=== PATIENT | female | born 1990 | race Hispanic/Latino ===

== ENCOUNTER 2020-10-11 18:07 | Emergency (ER) | payer OTHER, SELFPAY ==
--- NOTE | ~2020-10-11 | XR_ITS ---
EXAMINATION: XR foot LT min 3V DATE: 10/11/2020 18:19 INDICATION: Left foot pain, initial encounter TECHNIQUE: Dorsoplantar, lateral, and 2 oblique views of the left foot were obtained. COMPARISON: None FINDINGS: There is an acute, traumatic, closed, oblique distal shaft fracture of the third metatarsal . Dorsal soft tissue swelling overlies the fracture. The joint spaces are normal. No additional acute osseous findings are evident. IMPRESSION: 1. Acute distal shaft fracture of the third metatarsal. Reviewed, dictated and finalized at location A. [facility]IE[facility]
[2020-10-11 18:22] VITALS: BP 113/75; PULSE 73; RESP 16; TEMP 36.7; O2SAT 99
--- NOTE | 2020-10-11 18:24 | ED.GENADULT ---
HPI - General Adult General Chief complaint: Extremity Injury, Lower Stated complaint: Foot Pain Time Seen by Provider: 10/11/20 18:26 Source: patient and RN notes reviewed Mode of arrival: ambulatory Limitations: no limitations History of Present Illness HPI narrative: 30-year-old female presents today with complaints of left foot pain and swelling for the past 2.5 weeks. Cristina reports that she was out running bare feet on concrete prior to pain in the foot. Unknown injury. Soaking foot in ice, warm soaks, and applying icy hot without relief. Hurts to bear weight. No radiation of pain. No numbness, tingling, or loss of mobility. Exacerbating factor applying weight. Denies inability to bear weight. Denies discoloration. Denies suspect foreign body. LMP 09/01/2020, irregular menstruation due to IUD in place. Remains active. The patient reports she have not been diagnosed with COVID-19. The patient reports she is not waiting for the results of a COVID-19 lab test. The patient reports she do not have fever, chills, weakness, or fatigue. The patient reports she do not have a new or worsening cough or shortness of breath. Denies chest pain. The patient reports she do not have any rhinorrhea, congestion, sore throat, loss of taste, nausea, vomiting, abdominal pain, and diarrhea. Tolerating po intake well. Denies recent traveling. Denies concerns for COVID-19 or exposures been home with limited outdoor exposure except for essential household needs, work, and return home. At this time, patient is not suspected of having COVID-19. Some parts of this dictation were generated by voice recognition software and may contain typographical and/or grammatical inaccuracies. Related Data Allergies Allergy/AdvReac Type Severity Reaction Status Date / Time No Known Allergies Allergy Verified 10/11/20 18:25 Review of Systems Review of Systems: Narrative: CONSTITUTIONAL: Denies fever, chills, sweats. EYES: Denies visual changes, redness, discharge. ENT: Denies rhinorrhea, congestion, sore throat, otalgia. CARDIOVASCULAR: Denies chest pain, palpitations, edema. RESPIRATORY: Denies dyspnea, wheezing, cough. GASTROINTESTINAL: Denies abdominal pain, nausea, vomiting, diarrhea. SKIN: Denies rash or itching. MUSCULOSKELETAL: Denies acute back pain or myalgia. Complains of left foot pain and swelling. NEUROLOGIC: Denies numbness or focal weakness. PSYCHIATRIC: Denies anxiety or depression. All other systems reviewed are negative, except as documented in HPI and below. [facility] Past Medical History Medical History (Updated 10/12/20 @ 00:00 by Background Daemon) No significant past medical history Surgical History Surgical History (Updated 10/11/20 @ 18:42 by ROMMEL Schmitt) History of cholecystectomy Family History Family History (Updated 10/11/20 @ 18:42 by ROMMEL Schmitt) Father Alive and well Mother Alive and well Social History Social History (Updated 10/11/20 @ 18:44 by ROMMEL Schmitt) Smoking status: Former smoker Tobacco type: cigarettes Second hand tobacco smoke exposure: Yes Alcohol intake: current Substance use: never Living arrangements: with family Occupation/Education: occupation Gender identity (if verbalized by the patient): Female Sexual Orientation (if Verbalized by the Patient): Straight or Heterosexual Comments At time of signature, agree with nurse past medical, surgical, social, and family history. There is no relevant family history pertinent to the presenting complaint. Exam Narrative: Exam Narrative: GENERAL: This is a well-nourished, well-developed patient, in no apparent distress. Ambulates with a limp favoring left lower extremity. HEAD: normocephalic, atraumatic. EYES: PERRL. Sclera clear/white. Vision is grossly intact. CARDIOVASCULAR: Regular rate and rhythm without murmurs, gallops, or rubs. RESPIRATORY: Clear to auscultation. Breath
== END 2020-10-11 18:50 | disposition home or self-care (01) ==
PROVIDERS: Emergency Provider Nurse Practitioner Family
DX: S92.332A Displaced fracture of third metatarsal bone, left foot, initial encounter for closed fracture (principal); X58.XXXA Exposure to other specified factors, initial encounter; Y93.02 Activity, running; Z87.891 Personal history of nicotine dependence
CPT/HCPCS: 73630; 99213; G0463

== ENCOUNTER 2022-07-25 03:55 | Day surgery (SDC) | payer OTHER, SELFPAY ==
[2022-07-15 16:41] VITALS: BMI 34.4
--- NOTE | 2022-07-15 17:01 | PC.NURSE ---
Report to the Outpatient Waiting Room, entrance under the green pavilion located off [facility], at time 0830 on date 07/25/22. OR Time: 1030. Time changes happen often and if your time is changed the preop area will call you the afternoon before. - You and your visitor will be asked to self-screen and do not enter if you have any COVID symptoms. - Only one visitor and NO children visitors are allowed at this time. - The patient visitor is requested to leave or wait in car when not with patient due to restrictions. - A mask is required within the hospital. Patients may have clear liquids (water, carbonated beverages, clear teas, apple juice) until 3 hours prior to surgery with a maximum of 20 ounces 0730. - No food from midnight until time of surgery - Infants may have breast milk until 4 hours before surgery, infant formula 6 hours prior to surgery. - Children will be allowed to drink immediately following surgery. If applicable, please bring a bottle or sippy cup to assist with drinking. Juice, water, soda, and popsicles are readily available. For infants on formula, please bring formula the day of surgery. Pacifiers are allowed. Take the following medications with a SIP of water the morning of surgery: N/A Medications to discontinue per physician N/A Date to take last dose N/A Please no make-up, nail tajik, hairspray, perfume, deodorant, or body powder the day of surgery. No jewelry (including any body piercings) or valuables the day of surgery, leave them at home. Please take a shower or bath the night before, or the morning of, surgery with an antibacterial soap. Wear comfortable, loose fitting clothing. Children are encouraged to wear pajamas. - Jewelry must be removed prior to entering the operating room. Rings and piercings that are not removed may be cut off. - The hospital will not accept responsibility for valuables. - Please leave all valuables, including medications, at home the day of surgery. If you are going home after surgery, a licensed fleet driver must drive you home. - NO public transportation without another adult. - We recommend that an adult stay with you for 24 hours following discharge. - We also recommend that you do not drive, make important decision, drink alcoholic beverages, or take any drugs that were not prescribed by your health care provider for at least 24 hours after your discharge time. For Pediatric surgeries, we recommend two adults accompany the child home (only one inside the building at this time). Follow any additional instructions given to you from your surgeon. If you or anyone in your household have experienced Covid symptoms in the past week, please notify your surgeon or the nurse liaison at the phone number below for possible testing. Telephone instructions given to Cristina Sanon and asked if any additional questions and then verbalized understanding. Patient advised to call surgeon office or pre surgery nurse liaison [phone] if any additional questions.
[2022-07-25] VITALS (7 sets, daily range): BP systolic 99–112; BP diastolic 62–75; PULSE 53–76; RESP 11–20; TEMP 36.3–36.5; O2SAT 99–100
--- NOTE | 2022-07-25 07:30 | P.HP_ITS ---
H&P: HPI History of Present Illness Date/Time: 07/25/22 07:30 32-year-old female presents for Bilateral salpingectomy. We have discussed the permanence failure rate increased risk of ectopic and regret and patient desires to proceed. Also currently has an IUD in place which was unable to be removed in office and will be removed today. No other complaints or concerns at this time. Chief Complaint: Undesired fertility Review of Systems Review of Systems: All systems reviewed & are unremarkable except as noted in HPI and below PMFSH Past Medical History Medical History Adult BMI 34.0-34.9 kg/sq m Encounter for IUD insertion (11/15/16) 2017 Fracture of third metatarsal bone of left foot No significant past medical history Surgical History Surgical History History of cholecystectomy Family History Family History Father Alive and well Mother Alive and well Grandparent Diabetes mellitus Social History Social History Smoking status: Former smoker Additional smoking assessment comments: smoked once or twice per month- 1-2 cigarettes a time Alcohol intake: current Alcohol use details: 1 drink per month Substance use: never Substance use type: does not use Living arrangements: with family Additional living arrangements comments: 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, [employer] Gender identity (if verbalized by the patient): Female Sexual Orientation (if Verbalized by the Patient): Straight or Heterosexual Spiritual care concerns: No Meds Home Medications and Allergies Home Medications Medication Instructions Recorded Confirmed Type levonorgestrel 20 mcg/24 hours (8 1 device intrauterine ONCE 05/28/22 07/15/22 History yrs) 52 mg intrauterine device (Mirena) Allergies Allergy/AdvReac Type Severity Reaction Status Date / Time No Known Allergies Allergy Verified 07/15/22 16:40 Exam Const: General: cooperative, healthy appearing and comfortable Resp: Effort & Inspection: normal respiratory effort Auscultation: clear to auscultation bilaterally Cardio: Rate: regular rate Rhythm: regular rhythm GI: Inspection: normal to inspection Auscultation: normal bowel sounds : Speculum Exam - Vagina: normal appearance of the vagina Speculum Exam - Cervix: normal appearance of the cervix Bimanual exam- vagina & uterus: normal bimanual exam Bimanual Exam- Adnexa, other: normal adnexae Assessment and Plan Assessment and plan (1) Encounter for female sterilization procedure: Code(s): Z30.2 - Encounter for sterilization Status: Acute (2) Retained intrauterine contraceptive device (IUD): Code(s): T83.39XA - Other mechanical complication of intrauterine contraceptive device, initial encounter Status: Acute Plan 1. Laparoscopic bilateral salpingectomy 2. Hysteroscopic IUD removal.
--- NOTE | 2022-07-25 07:34 | WPDHPUPDATE1 ---
History and Physical Update Update Date/Time: 07/25/22 07:34 History and Physical has been reviewed, including an updated exam of the patient. There are NO changes in the patient's condition. Risks, benefits, and alternatives have been discussed and questions answered. Patient agrees to proceed with procedure.
[2022-07-25] MEDS: ACETAMINOPHEN 500 MG TABLET 1000 MG PO (08:16)
[2022-07-25] MEDS: LACTATED RINGERS 1,000 ML 30 ML IV CONT (08:30)
[2022-07-25] MEDS: KETOROLAC 15 MG/ML VIAL (*BKC) IV PUSH (08:32)
--- NOTE | 2022-07-25 08:52 | P.PNAN_ITS ---
Anes - Initial Pre Proc Eval Procedure: Operation Date: 07/25/22 10:00 Proposed Procedures p Bilateral Laparoscopic Salpingectomy, Hysteroscopy with Intrauterine Device Removal - Prashant Mcintyre MD Date/Time: 07/25/22 08:52 Surgeon: Prashant Mcintyre MD Pre Op Diagnosis: Desire Serilization Patient Data Age: 32 Gender: F Height: 1.55 m Weight: 82.7 kg Allergies Allergy/AdvReac Type Severity Reaction Status Date / Time No Known Allergies Allergy Verified 07/25/22 08:10 Home Medications Medication Instructions Recorded Confirmed Type levonorgestrel 20 mcg/24 hours (8 1 device intrauterine ONCE 05/28/22 07/15/22 History yrs) 52 mg intrauterine device (Mirena) Patient hx anesthesia problems: none Family hx anesthesia problems: none Results Review: All pre-operative results and documents have been reviewed as part of the pre- operative evaluation. [facility] Past Medical History Medical History Adult BMI 34.0-34.9 kg/sq m Encounter for IUD insertion (11/15/16) 2017 Fracture of third metatarsal bone of left foot No significant past medical history Surgical History Surgical History History of cholecystectomy Family History Family History Father Alive and well Mother Alive and well Grandparent Diabetes mellitus Social History Social History Smoking status: Former smoker Additional smoking assessment comments: smoked once or twice per month- 1-2 cigarettes a time Alcohol intake: current Alcohol use details: 1 drink per month Substance use: never Substance use type: does not use Living arrangements: with family Additional living arrangements comments: 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, [employer] Gender identity (if verbalized by the patient): Female Sexual Orientation (if Verbalized by the Patient): Straight or Heterosexual Spiritual care concerns: No Anes - Eval Final PreProcedure Day of Procedure 07/25/22 08:52 Heart: regular rate and rhythm Lungs: clear to auscultation Airway: Mallampati scale class II Neurological: alert and oriented Last oral intake: >/= 8 hours ASA classification: II Emergent: no Anesthetic plan: proceed Anesthesia type and monitoring: general ETT and standard monitoring Results Review: All pre-operative results and documents have been reviewed as part of the pre- operative evaluation. Informed Consent: The patient's anesthetic plan and its attendant risks and benefits were discussed with the patient/family/POA. Questions were solicited and answers provided to the satisfaction of the patient/family/POA.
--- NOTE | 2022-07-25 10:13 | P.OP_ITS ---
Procedure Note - Detailed Date of Procedure 07/25/22 Pre-op Diagnosis Desire Serilization Retained IUD Post-op Diagnosis Same Procedure Performed 1. Laparoscopic bilateral salpingectomy 2. Removal of IUD (no hysteroscope needed) Surgeon Prashant Mcintyre MD Anesthesia General Findings IUD noted be in the endometrial cavity. Laparoscopic evaluation revealed no abnormalities. Description of Procedure Patient prepped and draped in the usual manner for this procedure. Cervical instruments were placed for uterine mobility throughout the case. Prior to placing the trocars the polyp forceps were used to remove the IUD without difficulty. No hysteroscopic exam was necessary. Abdominal trocar sites were marked made and trocars were placed under direct visualization. Using the Harmonic scalpel to cauterize and cut the mesial salpinx both tubes removed with out difficulty. Gas was allowed to escape it is the trocars removed and incisions were approximated using 4-0 Monocryl. Patient was then sent to recovery room stable condition Estimated Blood Loss 20 Drains No Packing No Pathology Yes Complications None Condition Stable Disposition PACU [facility] Billing Surgery - Charge Forward: Surgery Billing
[2022-07-25] MEDS: fentaNYL CITRATE INJ (*CRX) 100 MCG/2 ML VIAL 25 MCG IV PUSH ×2 (10:44→10:46)
[2022-07-25] MEDS: oxyCODONE HCL (*CRX) 5 MG TAB IR PO (11:24)
== END 2022-07-25 12:06 | disposition home or self-care (01) ==
PROVIDERS: Visit Provider Obstetrics & Gynecology
PROC: 0UDB8ZZ Extraction of Endometrium, Via Natural or Artificial Opening Endoscopic (ICD-10-PCS; CPT 58558; principal; 2022-07-25 10:00)
DX: Z30.2 Encounter for sterilization (principal); Z30.432 Encounter for removal of intrauterine contraceptive device; Z87.891 Personal history of nicotine dependence
CPT/HCPCS: 58661; 58301; 88302; A9270; J0330; J1100; J1885; J2250; J2405; J2704; J3010; J7120

== ENCOUNTER 2023-11-25 16:21 | Emergency (ER) | payer OTHER, SELFPAY ==
[2023-11-25 16:29] VITALS: BP 123/83; PULSE 71; RESP 16; TEMP 36.9; O2SAT 100
[2023-11-25 16:38] VITALS: RESP 18
--- NOTE | 2023-11-25 16:58 | ED.URI ---
HPI - URI/Sore Throat General Chief Complaint: Upper Respiratory Infection Stated Complaint: Cough Time Seen by Provider: 11/25/23 16:59 Source: patient Mode of arrival: ambulatory Limitations: no limitations History of Present Illness HPI Narrative: 33 y/o female presented for c/o cough x2 weeks. Started with pain to right ribs and back yesterday. Taking Tylenol and Delsym. Cough is nonproductive. Denies sob, wheezing, n/v/d/f/c. Related Data Allergies Allergy/AdvReac Type Severity Reaction Status Date / Time No Known Allergies Allergy Verified 11/25/23 16:37 Review of Systems Review of Systems: CONSTITUTIONAL: Denies body aches, fever, chills, or sweats. EYES: Denies visual changes, redness, or discharge. ENT: Denies rhinorrhea, congestion, sore throat, or otalgia. CARDIOVASCULAR: Denies chest pain, palpitations, or edema. RESPIRATORY: Reports cough, erika sob, wheezing. SKIN: Denies rash, itching, or wounds. MUSCULOSKELETAL: Denies back pain, joint pain, or myalgia. NEUROLOGIC: Denies headache, numbness, tingling, or weakness. PSYCH: Denies depression or anxiety. All systems reviewed & are unremarkable except as noted in HPI and below PMFSH Past Medical History Medical History Adult BMI 34.0-34.9 kg/sq m Encounter for IUD insertion (11/15/16) 2017 Fracture of third metatarsal bone of left foot No significant past medical history Surgical History Surgical History H/O bilateral salpingectomy (07/25/22) bilateral salpingectomy / removal of iud device History of cholecystectomy Family History Family History Father Alive and well Mother Alive and well Grandparent Diabetes mellitus Social History Social History Smoking status: Former smoker Additional smoking assessment comments: smoked once or twice per month- 1-2 cigarettes a time Alcohol intake: current Alcohol use details: 1 drink per month Substance use: never Substance use type: does not use Living arrangements: with family Additional living arrangements comments: Occupation/Education: occupation 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 Please see nursing chart for further information. There is no relevant family history pertinent to the presenting complaint Exam Narrative: GENERAL: Well-appearing, in no acute distress. EYES: EOMI. No redness or drainage. Conjunctivae normal. ENT: Mucous membranes pink and moist. No rhinorrhea. TMs normal bilaterally. Throat normal. Uvula midline. NECK: Normal AROM. Supple. CHEST: No respiratory distress. Lungs clear to all wise. HEART: Regular rate and rhythm. No murmur appreciated. ABDOMEN: Soft, nontender, nondistended, normal active bowel sounds. SKIN: Warm, dry, no rash. Capillary refill normal. Normal skin turgor. NEURO: Alert and oriented x3. Gait steady. PSYCH: Normal affect. Course Course Emergency Course: Patient is aware of diagnosis, understands and agrees to treatment plan. Anticipatory guidance given. Patient agrees to follow-up as directed and is aware of reasons to seek care at the emergency department. Portions of this record may have been created with voice recognition software Level of Care: Express Care Visit Vital Signs Vital signs: Vital Signs Temperature 98.4 F 11/25/23 16:29 Pulse Rate 71 11/25/23 16:29 Respiratory Rate 16 11/25/23 16:29 Blood Pressure 123/83 11/25/23
== END 2023-11-25 17:12 | disposition home or self-care (01) ==
PROVIDERS: Emergency Provider Nurse Practitioner Family
DX: J40 Bronchitis, not specified as acute or chronic (principal); Z87.891 Personal history of nicotine dependence
CPT/HCPCS: 99213; G0463